=== PATIENT | male | born 1935 | race Caucasian/White ===

== ENCOUNTER 2017-12-07 10:05 | Emergency (ER) | END 2017-12-07 18:39 | disposition home or self-care (01) ==

== ENCOUNTER 2019-03-11 14:10 | Emergency (ER) | payer BC, OTHER ==
[~2019-03-11] VITALS: Ht 170.2 cm; Wt 72.0 kg
[2019-03-11 14:10] VITALS: Ht 170.2 cm; Wt 72.0 kg
[~2019-03-11 14:10] MED LIST: ACET-2047 PO; ASPI-903 PO; ATOR10TA65 PO; BISA10SU75 PR; DIVA250T60 PO; DOCU-144 PO; DORZ10DR6 BOTH EYES; ESCI10TA PO; GABA100C14 PO; LATA2.5D2 BOTH EYES; MAGN400O19 PO; MULT-542 PO
--- NOTE | 2019-03-11 14:17 | ERD ---
ER Documentation Chief Complaint Chief Complaint fall HPI The patient is a 83-year-old male, presenting to the ER because he had a mec hanical fall, to the nurses and sustained a scalp abrasion. He is unable to provide any history, the history is obtained from the vulcanizer operator and longterm notes Medical history: CAD, dyslipidemia, CAD, anxiety, dementia, BPH, psychosis, anxiety, chronic encephalopathy Surgical history: Back, CABG ROS All systems reviewed and are negative except as per history of present illness. Medications Home Meds Reported Medications Na Phos,M-B/Na Phos,Di-Ba (ENEMA [id number]) 133 Ml Enema, 133 ML RC DAILY PRN for CONSTIPATION, ENEMA 03/11/19 Bisacodyl (Dulcolax) 10 Mg Supp.rect, 10 MG RC EVERY 48 HOURS PRN for CONSTIPATION, SUPP.RECT 03/11/19 Magnesium Hydroxide* (Milk Of Magnesia*) 400 Mg/5 Ml Oral.susp, 30 ML PO EVERY 72 HOURS PRN for CONSTIPATION, ML 03/11/19 Acetaminophen* (Acetaminophen*) 650 Mg Tablet, 650 MG PO Q4 PRN for MILD PAIN LEVEL 1-3, #30 TAB AND FEVER 03/11/19 Amino Acids/Protein Hydrolys (Pro-Stat 64 Liquid) 887 Ml Liquid, 30 ML PO BID 03/11/19 Gabapentin* (Gabapentin*) 100 Mg Capsule, 200 MG PO TID, #180 CAP 03/11/19 Divalproex Sodium* (Depakote*) 125 Mg Tablet.dr, 375 MG PO TID, #180 TAB 03/11/19 Buspirone Hcl* (Buspirone Hcl*) 5 Mg Tab, 7.5 MG PO BID, TAB 03/11/19 Docusate Sodium* (Colace*) 100 Mg Capsule, 100 MG PO BID, #60 CAP 03/11/19 Dorzolamide Hcl* (Dorzolamide Hcl*) 10 Ml Drops, 1 DROP BOTH EYES BID, #1 EA 03/11/19 Latanoprost (Latanoprost) 2.5 Ml Drops, 1 DROP BOTH EYES QHS, #1 BOTTLE 03/11/19 Multivitamin* (Daily Value*) 1 Each Tablet, 1 TAB PO DAILY, TAB 03/11/19 Atorvastatin Calcium (Atorvastatin Calcium) 10 Mg Tablet, 10 MG PO QHS, #30 TAB 03/11/19 Escitalopram Oxalate* (Lexapro*) 5 Mg Tablet, 5 MG PO DAILY, #30 TAB 03/11/19 Aspirin (Low Dose Aspirin) 81 Mg Tablet.dr, 81 MG PO DAILY, #30 TAB 03/11/19 Discontinued Reported Medications Acetaminophen* (Acetaminophen*) 650 Mg Tablet, 650 MG PO Q4 PRN for PAIN AND OR ELEVATED TEMP, #30 TAB 12/07/17 Magnesium Hydroxide* (Milk Of Magnesia*) 400 Mg/5 Ml Oral.susp, 30 ML PO DAILY PRN for CONSTIPATION, ML 12/07/17 Dorzolamide/Timolol* (Dorzolamide/Timolol*) 10 Ml Drops, 1 DROP BOTH EYES BID, #1 EA 12/07/17 Divalproex Sodium* (Depakote*) 250 Mg Tablet.dr, 250 MG PO BID, TAB 12/07/17 Aspirin* (Aspirin* Chew) 81 Mg Tab.chew, 81 MG PO DAILY, TAB.CHEW 12/07/17 Bisacodyl* (Bisacodyl*) 10 Mg Supp, 10 MG AK Q48 HOURS, SUPP 12/07/17 Gabapentin* (Gabapentin*) 100 Mg Capsule, 100 MG PO BID, #90 CAP 12/07/17 Escitalopram Oxalate* (Lexapro*) 10 Mg Tablet, 10 MG PO DAILY, #30 TAB 12/07/17 Atorvastatin Calcium (Atorvastatin Calcium) 10 Mg Tablet, 10 MG PO QHS, #30 TAB 12/07/17 Multivitamin* (Daily Value*) 1 Each Tablet, 1 TAB PO DAILY, TAB 12/07/17 Docusate Sodium* (Colace*) 100 Mg Capsule, 100 MG PO BID PRN for CONSTIPATION, #60 CAP 12/07/17 Latanoprost (Latanoprost) 2.5 Ml Drops, 1 DROP BOTH EYES QHS, #1 BOTTLE 12/07/17 Allergies Allergies: Coded Allergies: No Known Allergy (Unverified , 03/11/19) PMhx/Soc History of Surgery: Yes (FUSION OF SPINE , LAMINECTOMY , CABG ) Hx Cardiac Disorders: Yes (HYPER CHOLESTEROL , OR) Hx Miscellaneous Medical Probl: Yes (ANXIETY , DEMENTIA, , GLAUCOMA, BPH,) Hx Alcohol Use: No Hx Substance Use: No Hx Tobacco Use: No Physical Exam Vitals Vital Signs Date Temp Pulse Resp B/P (MAP) Pulse Ox O2 O2 Flow FiO2 Time Delivery Rate 03/11/19 98.9 68 24 135/73 100 14:10 (93) Physical Exam Const: No acute distress. Head: Atraumatic. Superficial facial abrasion on the top of the scalp, no laceration, no active bleeding Eyes: Normal Conjunctiva. ENT: Normal External Ears, Nose and Mouth. Neck: Full range of motion. No meningismus. Resp: Clear to auscultation bilaterally. Cardio: Regular rate and rhythm. Abd: Soft, non distended, normal bowel sounds, non tender. Skin: No petechiae or rashes. Back: No midline or flank tenderness. Ext: No cyanosis, or edema. Neur: Awake. No focal deficit. Limited due to his condition Psych: Demented Result Diagram: 03/11/19 1453 03/11/19 1453 Results 24 hrs Laboratory Tests Test 03/11/19 14:53 03/11/19 15:33 White Blood Count 7.2 10^3/ul Red Blood Count 4.26 10^6/ul Hemoglobin 13.1 g/dl Hematocrit 38.6 % Mean Corpuscular Volume 90.6 fl Mean Corpuscular Hemoglobin 30.8 pg Mean Corpuscular Hemoglobin Concent 33.9 g/dl Red Cell Distribution Width 13.1 % Platelet Count 207 10^3/UL Mean Platelet Volume 9.6 fl Immature Granulocytes % 0.300 % Neutrophils % 57.4 % Lymphocytes % 26.9 % Monocytes % 11.6 % Eosinophils % 3.5 % Basophils % 0.3 % Nucleated Red Blood Cells % 0.0 /100WBC Immature Granulocytes # 0.020 10^3/ul Neutrophils # 4.2 10^3/ul Lymphocytes # 2.0 10^3/ul Monocytes # 0.8 10^3/ul Eosinophils # 0.3 10^3/ul Basophils # 0.0 10^3/ul Nucleated Red Blood Cells # 0.0 10^3/ul Sodium Level 130 mmol/L Potassium Level 5.1 mmol/L Chloride Level 94 mmol/L Carbon Dioxide Level 27 mmol/L Anion Gap 9 Blood Urea Nitrogen 14 mg/dl Creatinine 0.64 mg/dl Est Glomerular Filtrat Rate mL/min mL/min Glucose Level 101 mg/dl Calcium Level 8.7 mg/dl Prothrombin Time 13.7 Sec Prothrombin Time Ratio 1.1 INR International Normalized Ratio 1.04 Activated Partial Thromboplast Time 32.6 Sec Current Medications Medications Dose Sig/Katelyn Start Time Status Last (Trade) Ordered Route PRN Stop Time Admin Dose Reason Admin Diphtheria/ 0.5 ml ONCE ONCE 03/11/19 DC 03/11/19 Tetanus/Acell IM* 14:30 14:40 Pertussis 03/11/19 14:31 (Adacel) Haloperidol 2 mg ONCE ONCE 03/11/19 DC 03/11/19 (Haldol) IM 16:30 16:17 03/11/19 16:31 50 mg ONCE ONCE 03/11/19 DC 03/11/19 Diphenhydrami IM 16:30 16:17 ne HCl 03/11/19 16:31 (Benadryl) Lorazepam 2 mg STK-MED 03/11/19 DC (Ativan) ONCE .ROUTE 16:40 03/11/19 16:41 Lorazepam 1 mg ONCE ONCE 03/11/19 DC 03/11/19 (Ativan) IM 17:00 16:59 03/11/19 17:01 Procedures/[place] [address] Radiology Main Line: [phone] DIAGNOSTIC IMAGING REPORT Patient: JEREMIAS WHITE : 1935 Age: 83 Sex: M MR #: [id number] DOS: 03/11/19 1426 Ordering MD: ALVIN JACK MD Location: E/R Room/Bed: PROCEDURE: CT Head without. CLINICAL INDICATION: Headache. TECHNIQUE: The study was performed utilizing a multi-slice, multidetector CT scanner. Direct spiral 1 mm axial sections were obtained through the head without the use of intravenous contrast material. 1 or more of the following dose reduction techniques were utilized: Automated exposure control, adjustment of the mA and/or kV according to patient's size, iterative reconstruction technique. Coronal and sagittal reformations were obtained. The images were reviewed on a PACS workstation. DICOM images are available. RADIATION DOSE: CTDIvol: 39.64 mGy mGy DLP: 713.51 mGy.cm mGy-cm COMPARISON: No prior studies are available for comparison. FINDINGS: There is no intracranial hemorrhage, extra-axial fluid collection, mass lesion, midline shift or hydrocephalus. There is mild to moderate prominence of the cerebral sulci, lateral and third ventricles. There is mild patchy periventricular and subcortical white matter hypodensity. There is mild arteriosclerotic calcification of the parasellar internal carotid arteries. The florez-white matter differentiation is preserved. The basal cisterns are patent. The midline structures are intact. There is soft tissue swelling in the left frontal region without evidence of underlying calvarial fracture The orbits, calvarium and extracranial soft tissues are normal in appearance. The visualized paranasal sinuses, mastoid air cells and middle ear cavities are normally aerated. IMPRESSION: 1. No acute intracranial abnormality. No intracranial hemorrhage, extra-axial fluid collection, mass lesion or hydrocephalous. 2. Mild to moderate peripheral and central cerebral volume loss. 3. Soft tissue swelling in the left frontal region without evidence of underlying calvarial fracture. 4. Mild patchy periventricular and subcortical white matter hypodensity, likely related to chronic microangiopathic changes. RPTAT: HGAS .Eduardo Minor MD, MD Date Time Electronically viewed and signed by .Eduardo Minor MD, MD on 03/11/2019 15:29 .S/ CC: ALVIN JACK MD [id number] [place] [address] Radiology Main Line: [phone] DIAGNOSTIC IMAGING REPORT Patient: JEREMIAS WHITE : 1935 Age: 83 Sex: M MR #: [id number] DOS: 03/11/19 1426 Ordering MD: ALVIN JACK MD Location: E/R Room/Bed: PROCEDURE: CT Cervical Spine without contrast. CLINICAL INDICATION: Cervical spine pain status post fall. TECHNIQUE: The study was performed on a multislice multidetector CT scanner. Spiral axial 1 mm images were obtained through the cervical spine and reformatted at 2.5 mm slice thickness without contrast. 1 or more of the following dose reduction techniques were utilized: Automated exposure control, adjustment of the mA and/or kV according to patient's size, iterative reconstruction technique. Coronal and sagittal reformations were obtained. The images were reviewed on a PACS workstation. DICOM images are available. RADIATION DOSE: CTDIvol: 22.3 mGy mGy DLP: 553.13 mGy.cm mGy-cm COMPARISON: No prior studies are available for comparison. FINDINGS: There are postoperative changes from anterior cervical discectomy and fusion at C5-6 with paired intervertebral body screws in place and associated anterior spinal fusion plate. There is an disc spacer in place with solid osseous fusion across the C5-6 disc-space. There are postoperative changes from posterior cervical spinal fusion from C3-C6 with associated paraspinal fusion rods in place. There are laminectomy at C5 and C6. The left C3 pedicle screw abuts the vertebral foramen (axial series image 62). There is idiopathic fusion of the C4 and C5 vertebral bodies with severe loss of disc-space height and fusion along the left aspect of the disc space. There are anterior osteophytes at C6-7 with mild to moderate loss of disc-space height. There is idiopathic fusion at T1-2. There are moderate degenerate changes of the atlanto-odontoid articulation. The remaining vertebral body heights are maintained. There is no evidence of fracture or dislocation. There is idiopathic fusion of the right C2-3 facets. The cervical canal is unremarkable. There is a no bone destruction or sclerosis. The paraspinal soft tissues are unremarkable. No sig nificant paraspinal soft tissue swelling. C2-3: There is a 2 mm left paracentral disc/osteophyte complex. The thecal sac measures 10 mm in midline AP diameter. There is mild bilateral facet joint hypertrophy and mild left uncovertebral joint spondylosis. There is moderate left and mild right neural foraminal narrowing. C3-4: There is a Saddle-shaped 2 mm posterior disc/osteophyte complex. The thecal sac measures 11 mm in midline AP diameter. There is mild bilateral facet joint hypertrophy and moderate right uncovertebral joint spondylosis. There is severe right and mild left neural foraminal narrowing. C4-5: No residual disc material is seen. The thecal sac is patent. There is mild to moderate narrowing of both neural foramina. C5-6: No residual disc material is seen. The thecal sac is patent. There is moderate left neural foraminal narrowing. The right neural foramen is patent. C6-7: There is a broad-based 2-3 mm posterior disc/osteophyte complex. The thecal sac measures 8.6 mm in midline AP diameter. There is moderate bilateral facet joint hypertrophy and uncovertebral joint spondylosis. There is severe bilateral neural foraminal narrowing. C7-T1: No residual disc material is seen. The thecal sac and neural foramina are patent. IMPRESSION: 1. No acute abnormality of the cervical spine. No evidence of fracture or dislocation. 2. Postoperative changes from anterior cervical discectomy and fusion at C5-6 and posterior cervical fusion from C3-C6 with intact surgical hardware. There is solid osseous fusion at the C4-5 and C5-6. There is idiopathic fusion at T1-2 as well as the right C2-3 facet. 3. Moderate spondylosis/degenerative enthesopathy C6-7 with mild narrowing of the cervical thecal sac and severe bilateral neural foraminal narrowing. RPTAT: AAQQ .Eduardo Minor MD, MD Date Time Electronically viewed and signed by .Eduardo Minor MD, MD on 03/11/2019 15:44 .S/ CC: ALVIN JACK MD [id number] MEDICAL MAKING DECISION: The patient is a 83-year-old male, presenting with acute scalp abrasion, was treated with Tdap IM. He was very agitated and not responding to counseling, he was therefore treated with Benadryl 50 mg IM, Haldol 2 mg IM and Ativan 1 mg IM with good response. The differential diagnoses considered include but are not limited to subarachnoid hemorrhage, occult trauma, CVA, meningitis, encephalitis, hypertension, tension, migraine, cluster, narcotic withdrawal, cervical spine disease. Departure Diagnosis: Primary Impression: Scalp abrasion Additional Impression: Anemia Condition: Good Comments I discussed the findings with the patient. I advised the patient to follow-up with the primary physician in about 2-3 days, sooner if needed and return if any concern. Disclaimer: Inadvertent spelling and grammatical errors are likely due to EHR/dictation software use and do not reflect on the overall quality of patient care. Also, please note that the electronic time recorded on this note does not necessarily reflect the actual time of the patient encounter. ALVIN JACK MD Mar 11, 2019 14:17
[2019-03-11] MEDS ORDERED: DIPHTH/TET/ACEL PERTUSS (ADULT) 0.5 ML VIAL IM* ONE (14:30)
[2019-03-11] MEDS ORDERED: ATOR10TA65 PO (14:39)
[2019-03-11] MEDS ORDERED: ASPI81TA52 PO (14:39)
[2019-03-11] MEDS ORDERED: ESCI5TAB PO (14:39)
[2019-03-11] MEDS ORDERED: LATA2.5D2 BOTH EYES (14:40)
[2019-03-11] MEDS ORDERED: DORZ10DR5 BOTH EYES (14:40)
[2019-03-11] MEDS ORDERED: MULT-542 PO (14:40)
[2019-03-11] MEDS ORDERED: DOCU-144 PO (14:41)
[2019-03-11] MEDS ORDERED: BUSP5TAB2 PO (14:42)
[2019-03-11] MEDS ORDERED: DIVA125T PO (14:43)
[2019-03-11] MEDS ORDERED: GABA100C14 PO (14:43)
[2019-03-11] MEDS ORDERED: AMIN887L PO (14:44)
[2019-03-11] MEDS ORDERED: MAGN400O19 PO (14:45)
[2019-03-11] MEDS ORDERED: ACET-2047 PO (14:45)
[2019-03-11] MEDS ORDERED: BISA10SU55 RC (14:46)
[2019-03-11] MEDS ORDERED: NA P133E10 RC (14:47)
[2019-03-11] MEDS ORDERED: HALOPERIDOL 5 MG INJ IM ONE (16:30)
[2019-03-11] MEDS ORDERED: DIPHENHYDRAMINE 50 MG INJ IM ONE (16:30)
[2019-03-11] MEDS ORDERED: LORAZEPAM 2 MG INJ ONE (16:40)
[2019-03-11] MEDS ORDERED: LORAZEPAM 2 MG INJ IM ONE (17:00)
[2019-03-11 18:28] VITALS: BP 152/93; PULSE 86; RESP 14
== END 2019-03-11 19:14 | disposition home or self-care (01) ==
LOC: E/R 14:10
DX: S00.01XA Abrasion of scalp, initial encounter (principal); I25.10 Atherosclerotic heart disease of native coronary artery without angina pectoris; I25.2 Old myocardial infarction; D64.9 Anemia, unspecified; R51 Headache; W18.39XA Other fall on same level, initial encounter; Y92.9 Unspecified place or not applicable; Z23 Encounter for immunization; Z95.1 Presence of aortocoronary bypass graft; Z79.82 Long term (current) use of aspirin
CPT/HCPCS: 36415; 70450; 72125; 80048; 85025; 85610; 85730; 90471; 90715; 96372; 99285; J1200; J1630; J2060